=== PATIENT | female | born 1990 | race Hispanic/Latino ===

== ENCOUNTER 2017-03-26 13:47 | Inpatient (IN) | payer MEDICAID, OTHER, SELFPAY ==
[2017-03-26 22:04] VITALS: BMI 39.1
[2017-03-26] MEDS: Lactated Ringer's 1,000 ML IV SCH (22:10)
[2017-03-27] MEDS ORDERED: Acetaminophen 500 MG TAB PO PRN (00:12)
[2017-03-27] MEDS ORDERED: Ondansetron HCl/PF 4 MG/2 ML Vial IVP PRN ×3 (00:12→14:25)
[2017-03-27] MEDS ORDERED: Ibuprofen 800 MG TAB PO PRN (00:12)
[2017-03-27] MEDS ORDERED: Misoprostol 200 MCG TAB PR PRN (00:12)
[2017-03-27] MEDS ORDERED: Promethazine HCl 25 MG/ML VIAL IM PRN ×2 (00:12→05:33)
[2017-03-27] MEDS ORDERED: LR / Pitocin 40 units/1000 ml 1,000 ML IV PRN (00:12)
[2017-03-27] MEDS ORDERED: Lidocaine 1% (PF) 30 ML VIAL SC PRN (00:12)
[2017-03-27] MEDS ORDERED: Penicillin G Potassium 5 MILL.UNITS in Sodium Chloride 0.9% 100 ML IVPB SCH (00:15)
--- NOTE | 2017-03-27 00:19 | PDOC.LDHP ---
Labor and Delivery H&P Chief complaint: contractions, scheduled induction HPI: 26 yo @ 39.6wks by 9.0wk US presents for an elective induction. She states she has had contractions since yesterday morning as well. States she has not had any fluid loss, vaginal bleeding or abnormal discharge. No recent travel, blood transfusions, hx of mosquito bites, homemade tattoos. [employer] hx: NILM 08/2016 LSIL 2008 First menstrual period @ 13 yrs old regular menstrual cycles Due date: 03/27/16 Dating criteria: first trimester ultrasound (9.0wks) Grav: 4 Para: 3 (3003) OB History Details: OB hx: 08/05/14 39 wks 9lbs 8 ounces , PreEclampsia, and LGA, gonorrhea infection- treated. (FOB # 2) 08/07/2009 40wks 8 lbs 5 ounces no complications, (FOB #2) 11/27/2005 40wks, 6 lbs, 7ounces, (FOB #1) no hx of placental problems, pph, all term, vaginal deliveries Pt desires IUD after delivering her baby. Current complications: other (macrosomia) Abnormal US findings: No (EFW: 3439g @ 20.0wks; 2390g @ 32.5wks, 4159g @ 37.1wks ) Past Medical History: obesity Current medications: other (aspirin) Previous surgical history: none Social history: none - Physical Exam Vital signs reviewed and normal: yes General: NAD Heart: RRR Lungs: CTAB Abdomen: gravid Extremeties: no edema FHT: category 1 (accels present) [place] contractions every: 3-5 minutes - Vaginal Exam cm dilated: 4 Effacement: 90% Station: -2 - OB Labs Blood type: O RH: positive Antibody Screen: negative HIV: negative RPR: negative HEPSAg: negative 1 hour GCT: negative GBS: positive Urine drug screen: not done Rubella: immune Additional Labs: urine culture: enterococcus, treated; CHARLEY negative Cr: 0.4 AST: 19 Plt: 298 Pr/cr: 0.148 - Assessment 26 @ 39.6 wks presents for an elective induction. - Plan -: Plan: 1.) Term, iup, garcía, with macrosomia and gbs positive- Initial check was 4/80/-2 with a bray score of 7. Encourage ambulation and plan to recheck the patient's cervix in 3-4 hours. If no change plan for pitocin. If change, recheck patient in 3-4 hours. Start PCN now. Continuous monitoring. <Peggy Maldonado - Last Filed: 03/27/17 00:45> <Emily Jackson - Last Filed: 03/27/17 09:00> Allergies/Adverse Reactions: Allergies Allergy/AdvReac Type Severity Reaction Status Date / Time No Known Drug Allergies Allergy Verified 03/26/17 21:57 Attending Addendum - Attending Addendum I personally evaluated the patient and discussed the management with Dr. Maldonado I agree with the History, Examination, Assessment and Plan documented above with any addition or exceptions noted below. 26 yo female 39.6 wks by 9.0 wk sono here for latent labor. Cephalic. EFW 9 lbs. Proven pelvis of 9lb 8oz infant. IOB labs reviewed. Anatomy reviewed. 1 hour gtt WNL. 3T negative. GBS positive. BMI 39 with 10 lb wt gain LGA . Discussed R/B/A. Questions answered. Will allow patient to ambulate since in latent labor. Repeat exam in 2 hour to see if in active labor. Will augmentin with pitocin per protocol as needed vs other interventions to assist with labor. PCN for GBS ppx. NICU/Nursery aware. ABrayMD <Emily Jackson - Last Filed: 03/27/17 09:00>
[2017-03-27 00:50] LABS: Hemoglobin 12.9 g/dL (12.0-16.0); Mean Corpuscular HGB CONC 33.8 g/dL (32.0-36.0); Mean Corpuscular Hemoglobin 30.7 pg (27.0-31.0); Mean Corpuscular Volume 90.9 fl (81.0-99.0); Mean Platelet Volume 8.1 fL (7.4-10.4); Platelet Count 242 thou/uL (130-400); RBC Distribution Width 13.1 % (11.5-14.5); Red Blood Cell (RBC) Count 4.19 mill/uL (4.20-5.40); White Blood Cell (WBC) Count 9.7 thou/uL (4.8-10.8)
[2017-03-27 01:27] LABS: Hep B Surf Ag Non-Reactive S/CO (NonReactive)
[2017-03-27 01:28] LABS: Syphilis Antibody Nonreactive (Nonreactive); Syphilis Antibody Index 0.04 S/CO (<1.00 Non-Reactive)
[2017-03-27] MEDS: Penicillin G 2.5 MILL.units 2.5 MILL.UNITS in Premix Bag 1 BAG IVPB SCH ×3 (04:34→15:57)
[2017-03-27] MEDS ORDERED: Fentanyl 4 mcg/Marc 0.1% Cadd 100 ML ONE (04:51)
--- NOTE | 2017-03-27 05:07 | PDOC.LDPN ---
Labor & Delivery Progress Note - Subjective Subjective: other (26 yo presented for elective induction with contractions. Walked over the past couple hours. States her contractions are getting stronger. No fluid loss or bleeding.) - Objective Vital signs reviewed and normal: yes General: NAD, breathing through contractions Uterine fundus: non tender Dilation: 6 Effacement: 90% Station: -2 FHT: category 1 (accels present) [place] contractions every: 1-3 minutes - Assessment (1) Term Code(s): Z34.80 - ENCOUNTER FOR SUPRVSN OF NORMAL , UNSP TRIMESTER Current Visit: Yes Status: Acute (2) Encounter for elective induction of labor Code(s): Z34.90 - ENCNTR FOR SUPRVSN OF NORMAL , UNSP, UNSP TRIMESTER Current Visit: Yes Status: Acute -: 26 yo with no complications, presented initially for elective induction. However, she has made cervical change on her own to active labor ( most recent check /-). Plan: Continue labor checks q2h. Place epidural. No pitocin at this time. Continue pcn for gbs prophylaxis. <Peggy Maldonado - Last Filed: 03/27/17 05:05> Attending Addendum - Attending Addendum I personally evaluated the patient and discussed the management with Dr. Maldonado I agree with the History, Examination, Assessment and Plan documented above with any addition or exceptions noted below. 26 yo female at 40.0 wks by 9.0 wk sono here for latent labor now found to be in active labor. Originally scheduled for elective induction but now in active labor at 6 cm. Will continue to monitor. PCN started. Augment as needed. Cat 1 tracing. Requesting epidural for pain control currently. Complications include LGA fetus and maternal BMI 39. Delivery complications addressed with patient. Questions discussed. Caution also for PPH. Continue continuous monitoring. Repeat exam prn or q2 hours. Len <Emily Jackson - Last Filed: 03/27/17 09:04>
[2017-03-27] MEDS: Lactated Ringer's 1,000 ML IV SCH (05:13)
[2017-03-27] MEDS ORDERED: Lactated Ringer's 500 ML IV PRN (05:33)
[2017-03-27] MEDS ORDERED: Acetaminophen 325 MG TAB PO PRN (05:33)
[2017-03-27] MEDS ORDERED: diphenhydrAMINE 50 MG/ML VIAL IVP PRN (05:33)
[2017-03-27] MEDS ORDERED: ePHEDrine/0.9% NaCl/PF SYRINGE 50 mg/10 ml SLOW IVP PRN (05:33)
[2017-03-27] MEDS ORDERED: Eucerin (Mineral Oil/Petrolatum,White) 30 gm Jar TOP PRN (05:33)
[2017-03-27] MEDS ORDERED: Naloxone HCl 0.4 mg/ml Vial IVP PRN ×2 (05:33)
[2017-03-27] MEDS ORDERED: Communication Order-Pharmacy FS SCH (05:45)
[2017-03-27] MEDS ORDERED: Fentanyl 4mcg/Marcaine 0.1% Cassette 100 ML EPIDURAL SCH (05:45)
[2017-03-27] MEDS ORDERED: LR 500 ML/Oxytocin 10 units 500 ML IV SCH (07:30)
--- NOTE | 2017-03-27 08:31 | PDOC.LDPN ---
Labor & Delivery Progress Note - Subjective Subjective: comfortable - Objective Vital signs reviewed and normal: yes General: NAD, resting Uterine fundus: non tender SVE: 07:30 Dilation: 6.5 Effacement: 75% (80) Station: -2 FHT: category 1, variability present [place] contractions every: q7-12 min - Assessment (1) Encounter for elective induction of labor Code(s): Z34.90 - ENCNTR FOR SUPRVSN OF NORMAL , UNSP, UNSP TRIMESTER Current Visit: Yes Status: Acute Comment: 26 y/o @ 40.0 wks presents for elective induction of labor due to history of LGA and suspected macrosomnia -Patient dilated to 4 at presentation -No cytotec was given -4/80/-2 @ 22:46 -6/80/-2 @ 4:45 and 5:45 -Contractions started to spread out q7-12 minutes -Decision was made to start pitocin -Recheck at 7:30 relatively unchanged at 6.5/80/-2 (2) Term Code(s): Z34.80 - ENCOUNTER FOR SUPRVSN OF NORMAL , UNSP TRIMESTER Current Visit: Yes Status: Acute Comment: -Pitocin started at 7:30 -6.5/80/-2 at 7:30; minimal change 6/80/-2 since 4:45 -Continue expectant management (3) LGA (large for gestational age) fetus Code(s): QLS0910 - Current Visit: Yes Status: Resolved Comment: -Hx of LGA infant in prior (4) History of pre-eclampsia in prior , currently Code(s): O09.299 - SUPRVSN OF PREG W POOR REPRODCTV OR OBSTET HISTORY, UNSP TRI Current Visit: Yes Status: Acute Comment: -No problems with BP control during this (5) Positive GBS test Code(s): B95.1 - STREPTOCOCCUS, GROUP B, CAUSING DISEASES CLASSD ELSWHR Current Visit: Yes Status: Acute Comment: -Being treated with Penicillin Plan: continue plan of care
--- NOTE | 2017-03-27 09:23 | PDOC.LDPN ---
Labor & Delivery Progress Note - Subjective Subjective: comfortable - Objective Vital signs reviewed and normal: yes General: NAD, resting Uterine fundus: non tender SVE: 09:15 Dilation: 7 Effacement: 90% Station: -1 FHT: category 1, variability present [place] contractions every: q3-4 min AROM: clear fluid IUPC placed: yes FSE placed: yes - Assessment (1) Encounter for elective induction of labor Code(s): Z34.90 - ENCNTR FOR SUPRVSN OF NORMAL , UNSP, UNSP TRIMESTER Current Visit: Yes Status: Acute Comment: 26 y/o @ 40.0 wks presents for elective induction of labor -Patient dilated to 4 at presentation -No cytotec was given -Contractions started to spread out q7-12 minutes, patient started on pitocin ( no change in 3 hours) -09:15 check 7/90/-1; AROM, clear fluid; IUPC placed; scalp electrode placed -q2h checks (2) Term Code(s): Z34.80 - ENCOUNTER FOR SUPRVSN OF NORMAL , UNSP TRIMESTER Current Visit: Yes Status: Acute Comment: -Pitocin started at 7:30 -6.5/80/-2 at 7:30; minimal change 6/80/-2 since 4:45 -Continue expectant management -AROM, clear fluid @ 9:15 -IUPC placed @ 9:15 - scalp electrode placed @ 9:15 (3) LGA (large for gestational age) fetus Code(s): [id number] - Current Visit: Yes Status: Resolved Comment: -Hx of LGA in prior (4) History of pre-eclampsia in prior , currently Code(s): O09.299 - SUPRVSN OF PREG W POOR REPRODCTV OR OBSTET HISTORY, UNSP TRI Current Visit: Yes Status: Acute Comment: -No problems with BP control during this (5) Positive GBS test Code(s): B95.1 - STREPTOCOCCUS, GROUP B, CAUSING DISEASES CLASSD ELSWHR Current Visit: Yes Status: Acute Comment: -Being treated with Penicillin
[2017-03-27] MEDS ORDERED: Lidocaine 1% (PF) 30 ML VIAL ONE (09:42)
--- NOTE | 2017-03-27 11:16 | PDOC.LDPN ---
Labor & Delivery Progress Note - Subjective Subjective: comfortable - Objective Vital signs reviewed and normal: yes General: NAD, resting Uterine fundus: non tender SVE: 11:00 Dilation: Anterior lip Effacement: 100% Station: 1+ FHT: category 1, early decelerations, variability present [place] contractions every: Q2-3 min - Assessment (1) Encounter for elective induction of labor Code(s): Z34.90 - ENCNTR FOR SUPRVSN OF NORMAL , UNSP, UNSP TRIMESTER Current Visit: Yes Status: Acute Comment: 26 y/o @ 40.0 wks presents for elective induction of labor -Patient dilated to 4 at presentation -No cytotec was given -Contractions started to spread out q7-12 minutes, patient started on pitocin ( no change in 3 hours) -11:00 check 10 with anterior lip/100/+1 -Let patient labor down (2) Term Code(s): Z34.80 - ENCOUNTER FOR SUPRVSN OF NORMAL , UNSP TRIMESTER Current Visit: Yes Status: Acute Comment: -Pitocin started at 7:30 -10 with anteior lip/100/+1 @ 11:00 -Continue expectant management -AROM, clear fluid @ 9:15 -IUPC placed @ 9:15 - scalp electrode placed @ 9:15 (3) LGA (large for gestational age) fetus Code(s): [id number] - Current Visit: Yes Status: Resolved Comment: -Hx of LGA in prior (4) History of pre-eclampsia in prior , currently Code(s): O09.299 - SUPRVSN OF PREG W POOR REPRODCTV OR OBSTET HISTORY, UNSP TRI Current Visit: Yes Status: Acute Comment: -No problems with BP control during this (5) Positive GBS test Code(s): B95.1 - STREPTOCOCCUS, GROUP B, CAUSING DISEASES CLASSD ELSWHR Current Visit: Yes Status: Acute Comment: -Being treated with Penicillin
[2017-03-27] MEDS: LR / Pitocin 40 units/1000 ml 1,000 ML ONE ×2 (12:55→14:40)
[2017-03-27] MEDS ORDERED: Bisacodyl 10 MG SUPP PR PRN (14:25)
[2017-03-27] MEDS ORDERED: Milk Of Magnesia 30 ML UDCUP PO PRN (14:25)
[2017-03-27] MEDS ORDERED: Adacel (T-DAP) 0.5 ML VIAL IM ONE (14:25)
[2017-03-27] MEDS ORDERED: Preparation H Ointment 28 GM TUBE PR PRN (14:25)
[2017-03-27] MEDS ORDERED: Benzocaine/Menthol 20-0.5% 60 ML CAN TOP PRN (14:25)
[2017-03-27] MEDS ORDERED: LR / Pitocin 40 units/1000 ml 1,000 ML ONE (14:37)
[2017-03-27] MEDS: Ibuprofen 800 MG TAB PO SCH ×2 (15:52→23:01)
[2017-03-27] MEDS: Ferrous Sulfate 325 MG TAB PO SCH (16:27)
[2017-03-27] MEDS: Docusate Calcium (SURFAK) 240 MG CAP PO SCH (22:25)
--- NOTE | 2017-03-28 03:08 | OP-2 ---
DELIVERING PHYSICIANS: 1. Kate Mcdermott DO 2. Willian Kumar MD ATTENDING PHYSICIAN: Willian Kumar MD PROCEDURE: Spontaneous vaginal delivery. ANESTHESIA: Epidural. ESTIMATED BLOOD LOSS: 200 mL. PREOPERATIVE DIAGNOSES: 1. Elective induction of labor. 2. Suspected macrosomia. 3. GBS positive. 4. History of preeclampsia. 5. History of large for gestational age . POSTOPERATIVE DIAGNOSES: 1. Term intrauterine , delivered. 2. Same as above. 3. Mild shoulder dystocia. INDICATIONS: A 26-year-old female G4, P3, who presents to labor and delivery for an elective induction of labor. DELIVERY NOTE: This is a 26-year-old female G4, P3-0-0-3 at 40.0 weeks, who delivered a viable male at 12:54 on 03/27/2017. Following an uneventful antepartum course, a vigorous male was delivered over an intact perineum in the occiput anterior position. Head was delivered and there was minor difficulty delivering anterior shoulder. Alin maneuver was performed and then the posterior arm was flexed, which assisted with delivery of anterior shoulder and then the remainder of the body was delivered. No nuchal cord was noted. The head was held down and mouth and nares were bulb suctioned. Cord clamped and cut and cord blood collected. Placenta delivered intact with a 3-vessel cord noted. There was a clot within the placenta that raises concern for placental abruption. Fundal massage was performed and the fundus was firm. The patient did express several clots. The cervix and vagina were inspected and found to be free of lacerations. Infant went to nursery in good condition for routine care. Apgars were 9 and 9 at 1 and 5 minutes, respectively. The patient tolerated the delivery well and went to after routine recovery/care. FABIÁN
[2017-03-28] MEDS: Ibuprofen 800 MG TAB PO SCH ×2 (06:15→14:00)
--- NOTE | 2017-03-28 08:17 | PDOC.PP ---
Post Progress Note Post Day #: 1 PO intake tolerated: yes Flatus: yes Ambulation: yes Vital Signs (12 hours) Temp Pulse Resp BP 03/28/17 08:00 97.9 F 100 20 03/28/17 07:49 97.9 F 100 20 112/84 03/28/17 03:57 97.5 F L 82 16 127/76 03/28/17 00:37 98.2 F 98 18 122/79 Weight Weight 120.202 kg - Physical Examination General: NAD Cardiovascular: no m/r/g, RRR Respiratory: clear to auscultation bilaterally, non-labored breathing Abdominal: + bowel sounds, no distention, appropriately TTP Fundus firm & at: 3cm below umbilicus Extremities: negative homans (B) Skin: no rash Neurological: no gross focal deficits Psychiatric: A&Ox3, normal affect Result Diagrams: 03/27/17 Unknown Additional Labs: Post Labs Hep Bs Antigen Non-Reactive S/CO (NonReactive) 03/27/17 Unknown (1) Normal spontaneous vaginal delivery Code(s): O80 - ENCOUNTER FOR FULL-TERM UNCOMPLICATED DELIVERY Status: Acute Comment: Delivered term LGA male at 1254 on 03/27/17. No lacs. Bottle feeding. Unsure about contraception at this time. Desires to go home today. (2) Positive GBS test Code(s): B95.1 - STREPTOCOCCUS, GROUP B, CAUSING DISEASES CLASSD ELSWHR Status : Acute Comment: Adequately prophylaxed.
[2017-03-28] MEDS: Docusate Calcium (SURFAK) 240 MG CAP PO SCH (08:39)
[2017-03-28] MEDS: Ferrous Sulfate 325 MG TAB PO SCH (08:41)
[2017-03-28] MEDS ORDERED: Bupivacaine HCl 0.25%/Epi 0.0005/PF 10 ML VIAL FS ONE (11:11)
[2017-03-28 11:55] VITALS: BP 105/52; TEMP 98.2
== END 2017-03-28 15:45 | disposition home or self-care (01) | DRG 775 ==
LOC: L&D 21:21 → 3SW 03-27 15:49
PROVIDERS: ADMIT Student in an Organized Health Care Education/Training Program; ATTEND Student in an Organized Health Care Education/Training Program
PROC: 10E0XZZ Delivery of Products of Conception, External Approach (ICD-10-PCS; principal; 2017-03-27)
PROC: 3E033VJ Introduction of Other Hormone into Peripheral Vein, Percutaneous Approach (ICD-10-PCS; 2017-03-27)
DX: O36.63X0 Maternal care for excessive fetal growth, third trimester, not applicable or unspecified (principal); O66.0 Obstructed labor due to shoulder dystocia; O99.824 Streptococcus B carrier state complicating childbirth; Z3A.40 40 weeks gestation of pregnancy; Z37.0 Single live birth
CPT/HCPCS: 51702; 85027; 86780; 87340; 90715; J2001; J2540; J7050; J7120

== ENCOUNTER 2022-06-30 16:32 | Emergency (ER) | payer MEDICAID, SELFPAY | END 2022-06-30 18:10 | disposition home or self-care (01) | LOC: ERS 16:32 | DX: B36.9 Superficial mycosis, unspecified (principal); H60.92 Unspecified otitis externa, left ear | CPT/HCPCS: 99282 ==